=== PATIENT | male | born 2005 | race African-American/Black ===

== ENCOUNTER 2023-11-18 16:57 | Emergency (ER) | payer SELFPAY ==
[2023-11-18 17:12] VITALS: BP 140/73; TEMP 98.6; BMI 21.1
[2023-11-18 18:24] LABS: BASO % 1.7 % (0-2.0); EOS % 2.7 % (0-4.5); HEMOGLOBIN 16.8 GM/dL (11.7-16.9); LYMPH % 40.9 % (8-40); MCH 29.2 pg (25.7-33.7); MCHC 34.2 g/dl (32.0-35.9); MEAN CELL VOLUME 85.3 fl (80-96); MEAN PLT VOLUME 9.3 fl (7.5-11.1); MONO % 9.8 % (3.8-10.2); NEUT % 44.9 % (42.8-82.8); PLATELET COUNT 273 10^3/uL (134-434); RBC 5.74 M/mm3 (4.00-5.60); WHITE BLOOD COUNT 5.5 K/mm3 (4.0-10.0)
[2023-11-18 18:46] LABS: POTASSIUM 4.6 mmol/L (3.5-5.1)
[2023-11-18 18:48] LABS: ALBUMIN 4.3 g/dl (3.4-5.0); BLOOD UREA NITROGEN 11.2 mg/dL (7-18); CALCIUM 9.6 mg/dL (8.5-10.1)
[2023-11-18 18:49] LABS: MAGNESIUM 1.9 mg/dL (1.8-2.4)
[2023-11-18 18:53] LABS: BILIRUBIN,TOTAL 0.5 mg/dL (0.2-1); TOT PROT 8.4 g/dl (6.4-8.2)
[2023-11-18 19:31] VITALS: PULSE 67; RESP 16
== END 2023-11-18 19:45 | disposition home or self-care (01) ==
LOC: JER 16:57
DX: R07.9 Chest pain, unspecified (principal); R00.0 Tachycardia, unspecified; G89.29 Other chronic pain
CPT/HCPCS: 36415; 71046-TC-FY; 80053; 82550; 82553; 83735; 84439; 84443; 84484; 85025; 85379; 93005; 93010; 99285-25